=== PATIENT | male | born 1985 | race Caucasian/White ===

== ENCOUNTER 2017-08-22 10:59 | Emergency (ER) | payer MEDICAID ==
[~2017-08-22] VITALS: Ht 177.8 cm; Wt 86.2 kg
[2017-08-22 11:23] LABS: LYMPH # 2.5 K/mm3 (0.7-4.5); LYMPH % 30.5 % (10-50)
--- NOTE | 2017-08-22 11:30 | Emergency Room Report ---
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 N Clinical Suspician of Infection? N Mental Status: 1 - Regular (Normal Baseline) Sepsis Risk:Low Sepsis Risk Have you (or family members/close friends) recently traveled outside the [place]? N If Yes, where/when: Have you had exposure to infectious disease within the past month? N TB? Other? Specify: Source patient, RN notes reviewed, RN/MD Exam Limitations no limitations Comment This is a 32-year-old male patient presenting to the emergency room after being picked up by EMS from his residence where he was found unresponsive, after snorting a dose of heroine intranasally, possibly one hour ago. Patient was rolled over by EMS, did not receive any Narcan, and started waking up. He was transported to the emergency room where he continued to improve. ALLERGIES Coded Allergies: No Known Allergies (08/22/17) History Medical History General CAD? No Angina: No [place]: No Hypertension? No Hyperlipidemia? No CHF? No DVT? No COPD? No Asthma? No Anemia? No GERD? No Gastric ulcers? No GI Bleed? No Immunization Hx DT/Tetanus Unknown Surgical Hx Previous Surgery?Y Orthopedic Procedures Social History Smoking Hx Smoker: Current Every Day Smoker Tobacco: Yes Type Cigarettes Alcohol Alcohol: No Review of Systems All Other Systems Reviewed and Negative Psychiatric/Neurological other (s/p overdose) Physical Exam Vital Signs Vital Signs Date Time Temp Pulse Resp B/P Pulse O2 O2 Flow FiO2 Ox Delivery Rate 08/22 1228 98.2 95 18 127/86 96 08/22 1100 98.2 110 18 132/85 97 General Appearance normal appearance, WD/WN, mild distress Respiratory Status Yes: trachea midline, chest symmetrical, non tender chest. No: respiratory distress. Lung Sounds bilateral: normal breath sounds, lungs clear. 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 No Comment 1210-she will reevaluated, appears in no acute distress, awake and alert, heart rate now in the upper 80s. Respiration to follow up with [facility] regarding his drug addiction. Results/Orders Laboratory Tests 08/22/17 1116: Opiates Screen Cancelled, Urine Methadone Screen Cancelled, Barbiturates Cancelled, Phencyclidine Screen Cancelled, Amphetamines Screen Cancelled, Benzodiazepines Screen Cancelled, Cocaine Screen Cancelled, Marijuana (THC) Screen Cancelled, Urine Color Cancelled, Urine Appearance Cancelled, Urine pH Cancelled, Ur Specific [place] Cancelled 08/22/17 1107: Sodium 138, Potassium 4.2, Chloride 103, Carbon Dioxide 33 H, BUN 8, Creatinine 0.9, Estimated Creat Clear 145, Estimated GFR (MDRD) 98, Glucose 102, Calcium 9.0, Total Bilirubin 0.1 L, AST 23, ALT 48, Alkaline Phosphatase 89, Total Protein 7.4, Albumin 3.5, Globulin 3.9 H, Albumin/Globulin Ratio 0.9 L, WBC 8.3, RBC 5.09, Hgb 15.0, Hct 45.5, MCV 89.5, RDW 13.0, Plt Count 260, MPV 8.2, Gran % 62.3, Gran # 5.2, Lymphocytes % 30.5, Monocytes % 5.3, Eosinophils % 1.7, Basophils % 0.3, Lymphocytes # 2.5, Monocytes # 0.4, Eosinophils # 0.1, Basophils # 0.0, PUBS MCHC 32.9, MCH 29.4 Current Medication Orders Sig/Anna Marie Start time Last Medication Dose Route Stop Time Status Admin Sodium Chloride 1,000 ML .Q1H1M 08/22 1130 DC 08/22 IV 08/22 1230 1123 Sodium Chloride 10 ML PRN PRN 08/22 1130 DCD IV 08/23 1116 Sodium Chloride 1,000 ML .STK-MED ONE 08/22 1122 DC IV Orders Procedure Date/time Status CBC WITH AUTO DIFF 08/22 111 Complete CHEM 12 PROFILE 08/22 1116 Complete Departure Departure Time of Disposition 1221 Disposition DC Home or Self Care(routine) Clinical Impression Primary Impression: Heroin overdose Qualifiers: Encounter type: initial encounter Injury intent: accidental or unintentional Qualified Code: T40.1X1A - Poisoning by heroin, accidental ( unintentional), initial encounter Secondary Impressions: Sinus tachycardia Condition STABLE Referrals [facility]: Today after leaving ER KAREN DEJESUS (Family) Patient Instructions Chemical Dependency (Narcotic) (Alternative Therapy), DI for Drug Overdose in Adults, Drug Abuse and Drug Addiction Additional Instructions Please stop abusing illicit/street drugs. Follow-up with [facility], call today in order to arrange a follow-up. Discharge Counseling Counseled pt/family regarding diagnosis, test results, medications/RX, home care, follow up needs Comment Please stop abusing illicit/street drugs. Follow-up with [facility], call today in order to arrange a follow-up. ED Critical Care Critical Care Yes Time spent 30-74 min Vital system(s) involved: Circulatory Failure I was present at bedside for Coordinating pt's care, Reviewing lab results, For re-examinations If Critical Care minutes are documented, the time involved in the performance of seperately reportable procedures was not counted toward critical care time documented. I directly delivered medical care to this critically ill and/or injured patient. Timely evaluation and treatment was necessary to address the significant organ system(s) dysfunction present in this patient. at [id number]
--- NOTE | 2017-08-22 11:30 | Emergency Room Report ---
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 N Clinical Suspician of Infection? N Mental Status: 1 - Regular (Normal Baseline) Sepsis Risk:Low Sepsis Risk Have you (or family members/close friends) recently traveled outside the [place]? N If Yes, where/when: Have you had exposure to infectious disease within the past month? N TB? Other? Specify: Source patient, RN notes reviewed, RN/MD Exam Limitations no limitations Comment This is a 32-year-old male patient presenting to the emergency room after being picked up by EMS from his residence where he was found unresponsive, after snorting a dose of heroine intranasally, possibly one hour ago. Patient was rolled over by EMS, did not receive any Narcan, and started waking up. He was transported to the emergency room where he continued to improve. ALLERGIES Coded Allergies: No Known Allergies (08/22/17) History Medical History General CAD? No Angina: No [place]: No Hypertension? No Hyperlipidemia? No CHF? No DVT? No COPD? No Asthma? No Anemia? No GERD? No Gastric ulcers? No GI Bleed? No Immunization Hx DT/Tetanus Unknown Surgical Hx Previous Surgery?Y Orthopedic Procedures Social History Smoking Hx Smoker: Current Every Day Smoker Tobacco: Yes Type Cigarettes Alcohol Alcohol: No Review of Systems All Other Systems Reviewed and Negative Psychiatric/Neurological other (s/p overdose) Physical Exam Vital Signs Vital Signs Date Time Temp Pulse Resp B/P Pulse O2 O2 Flow FiO2 Ox Delivery Rate 08/22 1228 98.2 95 18 127/86 96 08/22 1100 98.2 110 18 132/85 97 General Appearance normal appearance, WD/WN, mild distress Respiratory Status Yes: trachea midline, chest symmetrical, non tender chest. No: respiratory distress. Lung Sounds bilateral: normal breath sounds, lungs clear. 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 No Comment 1210-she will reevaluated, appears in no acute distress, awake and alert, heart rate now in the upper 80s. Respiration to follow up with [facility] regarding his drug addiction. Results/Orders Laboratory Tests 08/22/17 1116: Opiates Screen Cancelled, Urine Methadone Screen Cancelled, Barbiturates Cancelled, Phencyclidine Screen Cancelled, Amphetamines Screen Cancelled, Benzodiazepines Screen Cancelled, Cocaine Screen Cancelled, Marijuana (THC) Screen Cancelled, Urine Color Cancelled, Urine Appearance Cancelled, Urine pH Cancelled, Ur Specific [place] Cancelled 08/22/17 1107: Sodium 138, Potassium 4.2, Chloride 103, Carbon Dioxide 33 H, BUN 8, Creatinine 0.9, Estimated Creat Clear 145, Estimated GFR (MDRD) 98, Glucose 102, Calcium 9.0, Total Bilirubin 0.1 L, AST 23, ALT 48, Alkaline Phosphatase 89, Total Protein 7.4, Albumin 3.5, Globulin 3.9 H, Albumin/Globulin Ratio 0.9 L, WBC 8.3, RBC 5.09, Hgb 15.0, Hct 45.5, MCV 89.5, RDW 13.0, Plt Count 260, MPV 8.2, Gran % 62.3, Gran # 5.2, Lymphocytes % 30.5, Monocytes % 5.3, Eosinophils % 1.7, Basophils % 0.3, Lymphocytes # 2.5, Monocytes # 0.4, Eosinophils # 0.1, Basophils # 0.0, PUBS MCHC 32.9, MCH 29.4 Current Medication Orders Sig/Anna Marie Start time Last Medication Dose Route Stop Time Status Admin Sodium Chloride 1,000 ML .Q1H1M 08/22 1130 DC 08/22 IV 08/22 1230 1123 Sodium Chloride 10 ML PRN PRN 08/22 1130 DCD IV 08/23 1116 Sodium Chloride 1,000 ML .STK-MED ONE 08/22 1122 DC IV Orders Procedure Date/time Status CBC WITH AUTO DIFF 08/22 111 Complete CHEM 12 PROFILE 08/22 1116 Complete Departure Departure Time of Disposition 1221 Disposition DC Home or Self Care(routine) Clinical Impression Primary Impression: Heroin overdose Qualifiers: Encounter type: initial encounter Injury intent: accidental or unintentional Qualified Code: T40.1X1A - Poisoning by heroin, accidental ( unintentional), initial encounter Secondary Impressions: Sinus tachycardia Condition STABLE Referrals [facility]: Today after leaving ER KAREN DEJESUS (Family) Patient Instructions Chemical Dependency (Narcotic) (Alternative Therapy), DI for Drug Overdose in Adults, Drug Abuse and Drug Addiction Additional Instructions Please stop abusing illicit/street drugs. Follow-up with [facility], call today in order to arrange a follow-up. Discharge Counseling Counseled pt/family regarding diagnosis, test results, medications/RX, home care, follow up needs Comment Please stop abusing illicit/street drugs. Follow-up with [facility], call today in order to arrange a follow-up. ED Critical Care Critical Care Yes Time spent 30-74 min Vital system(s) involved: Circulatory Failure I was present at bedside for Coordinating pt's care, Reviewing lab results, For re-examinations If Critical Care minutes are documented, the time involved in the performance of seperately reportable procedures was not counted toward critical care time documented. I directly delivered medical care to this critically ill and/or injured patient. Timely evaluation and treatment was necessary to address the significant organ system(s) dysfunction present in this patient. at [id number]
[2017-08-22 12:28] VITALS: BP 127/86
--- OUTSIDE RECORDS SUMMARY | 2017-08-22 12:51 | External Medical Summary Rpt | CCD ---
Author Author , MEENAKSHI ARRIETA Address Unknown Phone [email or web address] Purpose Continuity of Care Document - 12-07-2015 through 2016 Problems Code Diagnosis DOS Provider Status F11.20 Opioid 09-26-2016 dependence, uncomplicat ed E55.9 Vitamin D deficiency, unspecified F10.99 Alcohol use, unspecified with unspecified alcohol-ind uced disorder F19.10 Other psychoactiv e substance abuse, uncomplicat ed F32.9 Major depressive disorder, single episode, unspecified G89.29 Other chronic pain L02.419 Cutaneous abscess of limb, unspecified L03.119 Cellulitis of unspecified part of limb M25.572 Pain in left ankle and joints of left foot Z11.3 Encounter for screening for infections with a predominant ly sexual mode of transmissio n Z11.4 Encounter for screening for human immunodefic iency virus (HIV) Z13.89 Encounter for screening for other disorder Medications Na ND Rx Da Fi Fi Am Da Di Ph RX Ph St me C No te ll ll ou ys ag ar # ys at rm s nt no ma ic us Or Da si cy ia de te s n re d BU 00 09 10 60 30 00 TO Ac [place] 18 -2 -2 .0 00 TA ti OP 50 6- 0- 00 00 L ve IO 41 20 20 96 CA N 55 17 17 20 RE HC 2 77 L PH SR AR MA 15 CY 0 MG #5 TA BL ET
--- OUTSIDE RECORDS SUMMARY | 2017-08-22 12:51 | External Medical Summary Rpt | CCD ---
Author Author , MEENAKSHI ARRIETA Address Unknown Phone [email or web address] Purpose Continuity of Care Document - 06-30-2017 through 2016 Medications Na ND Rx Da Fi Fi Am Da Di Ph RX Ph St me C No te ll ll ou ys ag ar # ys at rm s nt no ma ic us Or Da si cy ia de te s n re d BU 00 09 10 60 30 00 TO Ac [place] 18 -2 -2 .0 00 TA ti OP 50 6- 0- 00 00 L ve IO 41 20 20 96 CA N 55 17 17 20 RE HC 2 77 L PH SR AR MA 15 CY 0 MG #5 TA BL ET
--- OUTSIDE RECORDS SUMMARY | 2017-08-22 12:51 | External Medical Summary Rpt | CCD ---
Author Author , MEENAKSHI ARRIETA Address Unknown Phone [email or web address] Purpose Continuity of Care Document - 12-07-2015 [...] 09 10 60 30 00 TO Ac ND 18 -2 -2 .0 00 TA ti OP 50 6- 0- 00 00 L ve IO 41 20 20 96 CA N 55 17 17 20 RE HC 2 77 L PH SR AR MA 15 CY 0 MG #5 TA BL ET
--- OUTSIDE RECORDS SUMMARY | 2017-08-22 12:51 | External Medical Summary Rpt | CCD ---
Author Author , MEENAKSHI ARRIETA Address Unknown Phone [email or web address] Purpose Continuity of Care Document - 06-30-2017 through 2016 Medications Na ND Rx Da Fi Fi Am Da Di Ph RX Ph St me C No te ll ll ou ys ag ar # ys at rm s nt no ma ic us Or Da si cy ia de te s n re d BU 00 09 10 60 30 00 TO Ac [place] 18 -2 -2 .0 00 TA ti OP 50 6- 0- 00 00 L ve IO 41 20 20 96 CA N 55 17 17 20 RE HC 2 77 L PH SR AR MA 15 CY 0 MG #5 TA BL ET
--- OUTSIDE RECORDS SUMMARY | 2017-08-22 12:52 | External Medical Summary Rpt | CCD ---
Author Author , MEENAKSHI ARRIETA Address Unknown Phone .[employer] Immunization Name Date Rout CVX Reac Dose Comm Prov Is Faci e tion ent ider Refu lity Give sed n Infl 09-0 999 Hist D200 No D200 uenz 1-20 oric 31 31 a 16 al Quad Info rmat W/Pr ion es - Sour ce Unsp ecif ied Hep 07-0 43 999 Hist H196 No H196 B, 9-20 oric adul 07 al t Info rmat ion - Sour ce Unsp ecif ied MMR 08-2 3 999 Hist H196 No H196 0-19 oric 97 al Info rmat ion - Sour ce Unsp ecif ied Td 03-0 Intr 9 999 Hist H112 No H112 (bean 6-19 amus oric lt), 97 cula al r Info adso rmat rbed ion - Sour ce Unsp ecif ied
--- OUTSIDE RECORDS SUMMARY | 2017-08-22 12:52 | External Medical Summary Rpt | CCD ---
Author Author , MEENAKSHI ARRIETA Address Unknown Phone [email or web address] Immunization Name Date Rout CVX Reac Dose [...]
--- OUTSIDE RECORDS SUMMARY | 2017-08-22 12:52 | External Medical Summary Rpt ---
Author Author MEENAKSHI Fagan, [employer] Organization [employer] Address Unknown Phone Unavailable Results Chlamyd/GC TMA Observa Value Referen Units Interpr Notes Date tion ce etation Range Chlamyd Negativ No No No No Sep 2 ia e informa informa informa informa 2016 trachom tion in tion in tion in tion in 10:42 atis source source source source AM data data data data Neisser Negativ No No No Testing Sep 2 ia e informa informa informa 2016 gonorrh tion in tion in tion in methodo 10:42 oeae source source source logy is AM data data data transcr iption mediate d amplifi cation (TMA) using the Aptima Combo 2 assay from [employer] be.\.br \A negativ e result does not complet radha rule out a Chlamyd ia trachom atis or Neisser ia gonorrh oeae infecti on due to potenti al inhibit ors or levels present below the limit of detecti on by this assay. Results are depende nt on proper collect ion and transpo rt of specime n. This test is indicat ed for medical purpose s only and should not be used for legal or forensi c purpose s.\.br\ \.br\Th e perform ance charact eristic s of this test were validat ed by [facility] are laborat ory. This assay is FDA cleared to test the followi ng specime ns: clinici an-sasha ected endocer vical, vaginal and male urethra l swab specime ns, patient collect ed vaginal specime ns within a clinic setting , Thin Prep Specime ns in Preserv Cyt Solutio n, and first-s tream, unprese rved male urine specime ns. Testing on female urine is not FDA approve d by this methodo logy, but has been develop ed and validat ed by the [facility] are laborat ory. Detaile d methodo logy is availab le upon request . Hep Prf-Ac Observa Value Referen Units Interpr Notes Date tion ce etation Range Hepatit Negativ Negativ No No No Sep 1 is B e e informa informa informa 2016 virus tion in tion in tion in 10:35 surface source source source AM Ag data data data [Presen ce] in Serum by Immunoa ssay Hep B Negativ Negativ No No No Sep 1 Core e e informa informa informa 2016 IgM tion in tion in tion in 10:34 source source source AM data data data Hepatit Negativ Negativ No No No Sep 1 is A e e informa informa informa 2016 virus tion in tion in tion in 10:33 Ab source source source AM [Units/ data data data volume] in Serum by Radioim munoass ay (SIMON) Hep C Negativ Negativ No No No Sep 1 Ab e e informa informa informa 2016 tion in tion in tion in 10:35 source source source AM data data data Vit D 25-OH Observa Value Referen Units Interpr Notes Date tion ce etation Range Vitamin 38.6 30.0 - ng/mL No INTERPR Sep 1 D-25 120.0 informa ETIVE 2016 OH tion in INFORMA 8:25 AM source TION: data Vitamin D, 25-Hydr oxy\.br \\.br\< 20 ng/mL Deficie ncy\.br \20 - 29 ng/mL Insuffi ciency\ .br\30 - 80 ng/mL Optimum Level\. br\>120 ng/mL Possibl e Toxicit y\.br\\ .br\NOT E: For infants and childre n up to 17 years of age, the optimum level is >=20 ng/mL. This assay accurat radha quantif ies the sum of vitamin D3, 25-Hydr oxy and vitamin D2, 25-Hydr oxy. Hep Prf-Ac Observa Value Referen Units Interpr Notes Date tion ce etation Range Hepatit Negativ Negativ No No No Dec 07 is B e e informa informa informa 2016 virus tion in tion in tion in 9:10 AM surface source source source Ag data data data [Presen ce] in Serum by Immunoa ssay Hep B Negativ Negativ No No No Dec 07 Core e e informa informa informa 2016 IgM tion in tion in tion in 9:10 AM source source source data data data Hepatit Negativ Negativ No No No Dec 07 is A e e informa informa informa 2016 virus tion in tion in tion in 9:09 AM Ab source source source [Units/ data data data volume] in Serum by Radioim munoass ay (SIMON) Hep C Negativ Negativ No No No Dec 07 Ab e e informa informa informa 2016 tion in tion in tion in 9:10 AM source source source data data data Vit D 25-OH Observa Value Referen Units Interpr Notes Date ti ce etation Range Vitamin 30.8 30.0 - ng/mL No INTERPR Dec 06 D-25 120.0 informa ETIVE 2016 OH tion in INFORMA 9:48 PM source TION: data Vitamin D, 25-Hydr oxy\.br \\.br\< 20 ng/mL Deficie ncy\.br \20 - 29 ng/mL Insuffi ciency\ .br\30 - 80 ng/mL Optimum Level\. br\>120 ng/mL Possibl e Toxicit y\.br\\ .br\NOT E: For infants and childre n up to 17 years of age, the optimum level is >=20 ng/mL. This assay accurat radha quantif ies the sum of vitamin D3, 25-Hydr oxy and vitamin D2, 25-Hydr oxy. Auto Diff Observa Value Referen Units Interpr Notes Date ti ce etation Range Neutrop 71.6 No % No No Dec 06 hils informa informa informa 2015 [#/volu tion in tion in tion in 6:10 PM me] in source source source Blood data data data by Automat ed count Lymphoc 17.4 No % No No Dec 06 ytes informa informa informa 2015 [#/volu tion in tion in tion in 6:10 PM me] in source source source Blood data data data by Automat ed count Monocyt 8.5 No % No No Dec 06 es informa informa informa 2015 [#/volu tion in tion in tion in 6:10 PM me] in source source source Blood data data data by Automat ed count Eos 2.2 No % No No Nov 28 Percent informa informa informa 2016 tion in tion in tion in 6:10 PM source source source data data data Baso 0.3 No % No No Nov 28 Percent informa informa informa 2016 tion in tion in tion in 6:10 PM source source source data data data Neut# 5.9 1.8 - x10(3)/ No No Nov 28 7.7 mcL informa informa 2016 tion in tion in 6:10 PM source source data data Lymph# 1.4 0.6 - x10(3)/ No No Nov 28 4.8 mcL informa informa 2016 tion in tion in 6:10 PM source source data data Boundary# 0.7 0.0 - x10(3)/ No No Nov 28 1.3 mcL informa informa 2016 tion in tion in 6:10 PM source source data data Eos# 0.2 0.0 - x10(3)/ No No Nov 28 0.5 mcL informa informa 2016 tion in tion in 6:10 PM source source data data Baso# 0.0 0.0 - x10(3)/ No No Nov 28 0.2 mcL informa informa 2016 tion in tion in 6:10 PM source source data data CBC Observa Value Referen Units Interpr Notes Date tion ce etation Range LEUKOCY 8.3 4.0 - x10(3)/ No No Nov 28 RAOUL 11.0 mcL informa informa 2016 tion in tion in 6:10 PM source source data data Erythro 4.84 4.30 - x10(6)/ No No Dec 06 cytes 5.81 mcL informa informa 2016 [#/volu tion in tion in 6:10 PM me] in source source Blood data data by Automat ed count Hemoglo 14.7 13.5 - gm/dL No No Dec 06 bin 17.1 informa informa 2016 [Mass/v tion in tion in 6:10 PM olume] source source in data data Blood Hematoc 43.8 38.9 - % No No Dec 06 rit 51.6 informa informa 2016 [Volume tion in tion in 6:10 PM source source Fractio data data n] of Blood by Automat ed count Erythro 90.5 82.5 - fL No No Dec 06 cyte 99.8 informa informa 2016 mean tion in tion in 6:10 PM corpusc source source ular data data volume [Entiti c volume] by Automat ed count Erythro 30.5 27.0 - pg No No Dec 06 cyte 34.3 informa informa 2016 mean tion in tion in 6:10 PM corpusc source source ular data data hemoglo bin [Entiti c mass] by Automat ed count Erythro 33.6 32.1 - gm/dL No No Dec 06 cyte 35.3 informa informa 2016 mean tion in tion in 6:10 PM corpusc source source ular data data hemoglo bin concent ration [Mass/v olume] by Automat ed count Erythro 13.2 11.5 - % No No Dec 06 cyte 15.0 informa informa 2016 distrib tion in tion in 6:10 PM ution source source width data data [Ratio] by Automat ed count Platele 193 144 - x10(3)/ No No Dec 06 ts 423 mcL informa informa 2016 [#/volu tion in tion in 6:10 PM me] in source source Blood data data by Automat ed count MPV 10.7 6.8 - fL No No Dec 06 10.8 informa informa 2016 tion in tion in 6:10 PM source source data data Lipid Scr Observa Value Referen Units Interpr Notes Date tion ce etation Range Cholest 164 <=200 mg/dL No < 200 Dec 06 stefany informa 2016 [Percen tion in 5:36 PM tile] source Desirab data le\.br\ 200 - 239 Borderl ine High\.b r\>= 240 High TRIGLYC 119 <=150 mg/dL No < 150 Dec 06 ERIDES. informa 2016 TOTAL tion in Normal\ 5:36 PM source .br\150 data - 199 Borderl ine High\.b r\200 - 499 High\.b r\ >= 500 Very High CHOLEST 40 >=40 mg/dL No > 60 Dec 06 EROLS.I informa 2016 N HDL tion in Optimal 5:36 PM source \.br\40 data - 60 Accepta ble\.br \ < 40 Low LDL 100 <=100 mg/dL No < 100 Dec 06 Calcula informa 2016 astrid tion in 5:36 PM source Optimal data \.br\10 0 - 129 Near or above optimal \.br\13 0 - 159 Borderl ine High\.b r\160 - 189 High\.b r\ >= 190 Very High TSH Observa Value Referen Units Interpr Notes Date tion ce etation Range Thyrotr 0.942 0.270 - mcIU/mL No No Dec 06 opin 4.200 informa informa 2016 [Units/ tion in tion in 5:36 PM volume] source source in data data Serum or Plasma
--- OUTSIDE RECORDS SUMMARY | 2017-08-22 12:52 | External Medical Summary Rpt ---
[...] using the Aptima Combo 2 assay from [employer] be.\.br \A negativ e result does not [...] this test were validat ed by [facility] are laborat ory. This assay [...] ed and validat ed by the [facility] are laborat ory. Detaile d [...] in 6:10 PM source source data data [place]# 0.7 0.0 - x10(3)/ No No Nov [...]
== END 2017-08-22 12:38 | disposition home or self-care (01) ==
LOC: ER 10:59
PROVIDERS: Emergency Medicine
DX: T40.1X1A Poisoning by heroin, accidental (unintentional), initial encounter (principal); R00.0 Tachycardia, unspecified